=== PATIENT | female | born 1980 | race Caucasian/White ===

== ENCOUNTER 2019-05-21 17:15 | Emergency (ER) | payer MEDICAID ==
[~2019-05-21] VITALS: Ht 162.6 cm; Wt 67.0 kg
[2019-05-21 17:26] VITALS: BP 114/84
[2019-05-21] MEDS ORDERED: ketorolac tromethamine 15mg/ml inj. IM ONE (17:50)
[2019-05-21] MEDS ORDERED: orphenadrine citrate 60mg/2ml inj. IM ONE (17:50)
[2019-05-21] MEDS ORDERED: METH-360 PO (18:12)
[2019-05-21] MEDS ORDERED: NAPR-56 PO (18:13)
== END 2019-05-21 20:05 | disposition home or self-care (01) ==
LOC: ER 17:15
DX: S29.012A Strain of muscle and tendon of back wall of thorax, initial encounter (principal); M25.512 Pain in left shoulder; V49.88XA Car occupant (driver) (passenger) injured in other specified transport accidents, initial encounter; Y93.89 Activity, other specified; Y92.413 State road as the place of occurrence of the external cause; Y99.9 Unspecified external cause status
CPT/HCPCS: 72070; 96372; 99283; J1885; J2360

== ENCOUNTER 2021-02-05 08:15 | Day surgery (SDC) | payer MEDICAID ==
[2021-01-28 15:50] LABS: BASOPHILS # (AUTO) 0.1 X10'3 (0-0.2); BASOPHILS % (AUTO) 0.7 % (0-1); EOSINOPHILS # (AUTO) 0.1 X10'3 (0-0.9); LYMPHOCYTES # (AUTO) 2.3 X10'3 (1.1-4.8); LYMPHOCYTES % (AUTO) 24.5 % (21-51); MEAN CORPUSCULAR HEMOGLOBIN 28.7 PG (27.0-31.0); MEAN CORPUSCULAR HGB CONC 32.4 g/dL (33.0-36.5); MEAN CORPUSCULAR VOLUME 88.7 FL (78-98); MEAN PLATELET VOLUME 8.4 FL (7.4-10.4); MONOCYTES # (AUTO) 0.7 X10'3 (0-0.9); MONOCYTES % (AUTO) 7.9 % (2-12); NEUTROPHILS # (AUTO) 6.2 X10'3 (1.8-7.7); NEUTROPHILS % (AUTO) 65.9 % (42-75); PRE OP HEMATOCRIT 41.5 % (35.0-45.0); PRE OP HEMOGLOBIN 13.5 g/dL (12.0-16.0); PRE OP PLATELET COUNT 322 X10'3 (140-440); RED BLOOD COUNT 4.68 X10'6 (4.20-5.60); RED CELL DISTRIBUTION WIDTH 13.9 % (11.5-14.5)
[2021-01-28 16:05] LABS: ALBUMIN/GLOBULIN RATIO 1.1 (1.1-1.5); ALKALINE PHOSPHATASE 48 IU/L (46-116); BLOOD UREA NITROGEN 11 MG/DL (7-18); BUN/CREATININE RATIO 17.2 (6.6-38.0); CALCIUM 8.8 MG/DL (8.5-10.1); CHLORIDE 105 MMOL/L (99-107); CREATININE 0.64 MG/DL (0.40-0.90); PRE OP ALT 15 U/L (30-65); PRE OP ANION GAP 9 (8-16); PRE OP AST 10 U/L (10-37); PRE OP BILIRUB, TOTAL 0.8 MG/DL (0.0-1.0); PRE OP GLUCOSE 86 MG/DL (70-104); PRE OP POTASSIUM 3.7 MMOL/L (3.4-5.1); PRE OP SODIUM 141 MMOL/L (135-145); TOTAL CARBON DIOXIDE 26.9 MMOL/L (24-32); TOTAL PROTEIN 7.7 G/DL (6.4-8.2); eGFR > 90 ML/MIN
[2021-01-28 16:06] LABS: HCG SERUM QL NEGATIVE
[~2021-02-05] VITALS: Ht 162.6 cm; Wt 73.3 kg
[2021-02-05] VITALS (8 sets, daily range): BP systolic 96–114; BP diastolic 50–92
[~2021-02-05 08:15] MED LIST: PSEU-259 PO; cefazolin/dext.iso 2gm/100ml 100 ML IV ONE; famotidine 20mg tablet PO ONE; ringers solution, lacted 1,000 ML IV SCH
[2021-02-05] MEDS ORDERED: cloNIDine hcl/PF 100mcg/ml inj ONE (10:33)
[2021-02-05] MEDS ORDERED: midazolam 1 mg/ML 2ml injection ONE ×2 (10:36→10:51)
[2021-02-05] MEDS ORDERED: ROPIVAcaine 0.5% (5mg/ml) 30ml vial ONE (10:36)
[2021-02-05] MEDS ORDERED: fentaNYL/PF 50MCG/1 ML 2ML syringe ONE (10:36)
[2021-02-05] MEDS ORDERED: propofol inj 20 ML IV ONE (10:36)
[2021-02-05] MEDS ORDERED: vancomycin 1,000mg inj ONE (11:14)
[2021-02-05] MEDS ORDERED: BUPIVAcaine/PF 2.5mg/ml (0.25%) 10ml vial ONE (11:25)
[2021-02-05] MEDS ORDERED: triamcinolone acetonide 40mg/ml inj ONE (11:25)
[2021-02-05] MEDS ORDERED: morphine 4 MG/ML inj SYRINge IV PRN (11:40)
[2021-02-05] MEDS ORDERED: proCHLORperazine 10 MG/2 ml inj IV PRN (11:40)
[2021-02-05] MEDS ORDERED: ringers solution, lacted 1,000 ML IV SCH (11:40)
[2021-02-05] MEDS ORDERED: ondansetron/PF 4mg/2ml inj IV PRN (11:40)
[2021-02-05] MEDS ORDERED: morphine 2 MG/ML inj. syringe IV PRN (11:40)
[2021-02-05] MEDS ORDERED: meperidine/PF 25mg/ml syringe IV PRN ×3 (11:40)
[2021-02-05] MEDS ORDERED: ondansetron/PF 4mg/2ml inj ONE (11:57)
[2021-02-05] MEDS ORDERED: dexamethasone sod phosphate 4mg/ml inj. ONE (11:57)
--- NOTE | 2021-02-05 12:14 | NUR ---
Received from OR via [facility] , accompanied by Anesthesiologist DEBORAH and report given by Anesthesiolgist. PATIENT WITH 20G PIV IN RIGHT HAND RUNNING LR AT 100. DENIES PAIN, LEFT ANTERIOR SHOULDER DRESSING IS CDI. VSS. + RADIAL PULSE PRESENT. SLING IN PLACE. NERVE BLOCK IN PLACE AND PATIENT HAS NO PAIN. Addendum: 02/05/21 at 1221 by Huber Gallego RN, RN Amended: Links added.
[2021-02-05] MEDS ORDERED: acetaminophen 325mg tablet PO PRN (12:45)
--- NOTE | 2021-02-05 13:24 | NUR ---
ALL DISCHARGE CRITERIA HAS BEEN MET. VSS, PAIN AT A TOLERABLE LEVEL, VOIDING AND ABLE TO SAFELY AMBULATE AND TRANSFER SELF. IV TAKEN OUT WITHOUT ANY COMPLICATIONS. ALL DISCHARGE INSTRUCTIONS COVERED WITH PATIENT AND ALL QUESTIONS ANSWERED. PATIENT TAKEN OUT VIA WHEELCHAIR TO PERSONAL VEHICLE WHERE FAMILY/FRIEND DROVE PATIENT HOME. Addendum: 02/05/21 at 1339 by Huber Gallego RN, RN Amended: Links added.
--- NOTE | 2021-02-05 13:24 | NUR ---
ALL DISCHARGE CRITERIA HAS BEEN MET. VSS, PAIN AT A TOLERABLE LEVEL, VOIDING AND ABLE TO SAFELY AMBULATE AND TRANSFER SELF. IV TAKEN OUT WITHOUT ANY COMPLICATIONS. ALL DISCHARGE INSTRUCTIONS COVERED WITH PATIENT AND ALL QUESTIONS ANSWERED. PATIENT TAKEN OUT VIA WHEELCHAIR TO PERSONAL VEHICLE WHERE FAMILY/FRIEND DROVE PATIENT HOME. Addendum: 02/05/21 at 1337 by Huber Gallego RN, RN Amended: Links added.
== END 2021-02-05 13:24 | disposition home or self-care (01) ==
LOC: PAS 08:15
PROVIDERS: ATTEND Orthopaedic Surgery
DX: M75.42 Impingement syndrome of left shoulder (principal); M65.812 Other synovitis and tenosynovitis, left shoulder; M75.52 Bursitis of left shoulder; M19.012 Primary osteoarthritis, left shoulder; G89.18 Other acute postprocedural pain; Z20.822 Contact with and (suspected) exposure to COVID-19; G43.909 Migraine, unspecified, not intractable, without status migrainosus; F32.9 Major depressive disorder, single episode, unspecified; F41.9 Anxiety disorder, unspecified; J45.909 Unspecified asthma, uncomplicated; E66.8 Other obesity; Z68.28 Body mass index [BMI] 28.0-28.9, adult; Z98.890 Other specified postprocedural states; Z88.5 Allergy status to narcotic agent; Z72.89 Other problems related to lifestyle; Z82.61 Family history of arthritis
CPT/HCPCS: 29820; 29823; 29824; 29826; 36415; 64415; 76942; 80053; 84703; 85025; J0735; J1100; J2250; J2405; J2704; J3010; J3301; J3370; J3490; U0003; U0005; A4215; A4565; A4618; A6250; A6449; A7000; J2795; J7120

== ENCOUNTER → 2024-05-11 | Outpatient (CLI) | payer MEDICAID ==
[~2024-05-11] MED LIST changes: -cefazolin/dext.iso 2gm/100ml 100 ML IV ONE; -famotidine 20mg tablet PO ONE; -ringers solution, lacted 1,000 ML IV SCH
== END | disposition home or self-care (01) ==
LOC: MRI 15:58
PROVIDERS: ATTEND Nurse Practitioner
DX: M47.816 Spondylosis without myelopathy or radiculopathy, lumbar region (principal); M54.59 Other low back pain
CPT/HCPCS: 72148